=== PATIENT | female | born 1985 | race Caucasian/White ===

== ENCOUNTER 2017-12-22 17:31 | Emergency (ER) | payer BC ==
[~2017-12-22] VITALS: Ht 154.9 cm; Wt 44.1 kg
[~2017-12-22 17:31] MED LIST: EFF75 PO
[2017-12-22 17:49] VITALS: Ht 154.9 cm; Wt 44.1 kg
[2017-12-22] MEDS ORDERED: SODIUM CHLORIDE 0.9% 1000ML 1,000 ML IV STA (18:08)
--- NOTE | 2017-12-22 18:26 | EMERGENCY ROOM VISIT NOTE ---
History Report prepared by Clint: Devyn Thomas Under the Supervision of: Dr. Gilberto Sen M.D. First contact with patient: 17:59 Chief Complaint: FLU LIKE SX Stated Complaint: FLU History of Present Illness The patient is a 32 year old female who presents to the Emergency Room with complaints of flu-like symptoms that began five days ago. She has a history of a double mastectomy. At this time, the patient was evaluated at [facility] secondary to her lower back pain and RLQ shooting abdominal pain. She received blood work, a urinalysis, and was scheduled for a CT scan of her abdomen in the next coming days. Her blood and urine was found to be negative. However, two days ago she called the office because she was not feeling any better. She began to experience a cough, nausea, and global body aches. She was told that she may have the flu. She has progressed to experiencing some chest pain associated with deep inhalation. She was supposed to have her CT scan today , but did not go because she did not believe that she could drink the CT oral contrast. Pt denies LOC, headache, fevers, chills, diaphoresis, visual changes, neck pain, breathing difficulties, vomiting, abdominal pain, back pain, melena, hematochezia, urinary symptoms, numbness, weakness, lymphadenopathy, rash, or other complaints. She is currently taking Fluoxetine and Adderall. Source of History: patient Onset: five days ago Position: other (global) Symptom Intensity: moderate Quality: other (Flu-like symptoms) Timing: constant (for the flu symptoms), intermittent (for the abdominal pain) Associated Symptoms: + cough, + chest pain (associated with deep inhalation) , + nausea, + abdominal pain (RLQ and LLQ), + back pain (lower) Note: She is also experiencing generalized body aches. Review of Systems See HPI for pertinent positives and negatives. A total of ten systems were reviewed and were otherwise negative. Past Medical & Surgical Medical Problems: (1) Laceration of multiple sites of hand and fingers Surgical Problems: (1) S/P mastectomy, bilateral No chronic past medical history Family History Cancer Social History Smoking Status: Current Every Day Smoker Smokeless Tobacco Use: No Alcohol Use: none Drug Use: none Marital Status: Occupation Status: employed Current/Historical Medications Scheduled Fluoxetine HCl (Fluoxetine HCl), 20 MG PO DAILY Ibuprofen (Ibuprofen), 800 MG PO BID Oseltamivir Phosphate (Oseltamivir Phosphate), 75 MG PO DAILY Scheduled PRN Amphetamine-Dextroamphetamine 20MG (Adderall 20MG), 20 MG PO DAILY PRN for FOCUS Amphetamine-Dextroamphetamine 30MG (Adderall Xr 30MG), 30 MG PO DAILY PRN for FOCUS Clonazepam (Klonopin), 0.5 MG PO DAILY PRN for Anxiety Allergies Coded Allergies: Gabapentin (Verified Allergy, Mild, Depressed, 12/22/17) Physical Exam Vital Signs Date Time Temp Pulse Resp B/P (MAP) Pulse Ox O2 Delivery O2 Flow Rate FiO2 12/22/17 20:18 36.8 80 18 93/56 95 Room Air 12/22/17 17:49 37.0 85 18 106/74 94 Room Air Physical Exam GENERAL: Awake, alert, uncomfortable-appearing, in no distress HENT: Normocephalic, atraumatic. Oropharynx unremarkable. EYES: Normal conjunctiva. Sclera non-icteric. NECK: Supple. No nuchal rigidity. FROM. No JVD. RESPIRATORY: Mild cough noted, otherwise clear to auscultation. CARDIAC: Regular rate, normal rhythm. Extremities warm and well perfused. Pulses equal. ABDOMEN: Soft, non-distended. Minimal LLQ tenderness to palpation. No rebound or guarding. No masses. RECTAL: Deferred. MUSCULOSKELETAL: Chest examination reveals no tenderness. The back is symmetrical on inspection without obvious abnormality. There is no CVA tenderness to palpation. No joint edema. LOWER EXTREMITIES: Calves are equal size bilaterally and non-tender. No edema. No discoloration. NEURO: Normal sensorium. No sensory or motor deficits noted. SKIN: No rash or jaundice noted. Medical Decision & Procedures ER Provider Diagnostic Interpretation: Radiology results as stated below per my review and radiologist interpretation: CHEST ONE VIEW PORTABLE HISTORY: Generalized abdominal pain. COMPARISON: None. FINDINGS: The lungs are clear. Cardiac silhouette is normal in size. No pleural effusions. No pneumothorax. IMPRESSION: No acute process. Electronically signed by: Allen Maguire M.D. 12/22/2017 7:00 PM Dictated Date/Time: 12/22/2017 6:59 PM ABDOMEN AND PELVIS CT WITH IV CONTRAST CT DOSE: 260.66 mGy.cm HISTORY: Lower abdominal pain. TECHNIQUE: Multiaxial CT images of the abdomen and pelvis were performed following the use of intravenous contrast. A dose lowering technique was utilized adhering to the principles of ALARA. COMPARISON STUDY: None. FINDINGS: The lung bases are clear. No pneumoperitoneum. No pneumatosis. No fractures within the visualized osseous structures. Evidence for bilateral breast augmentation. The liver, gallbladder, pancreas, spleen, adrenal glands, and kidneys are unremarkable. No hydronephrosis. No retroperitoneal lymphadenopathy. The bladder is decompressed and not well visualized. The uterus and bilateral adnexa appear unremarkable. No dilated loops of bowel to suggest an obstruction. Multiple fluid-filled loops of small bowel are identified. There is moderate well-formed stool throughout the majority of the colon. Possible visualization of the appendix within the right lower quadrant on images 252 through 261. This is normal in caliber. No signs of inflammatory change to suggest acute appendicitis. IMPRESSION: 1. No definite bowel wall thickening or obstruction. 2. Fluid-filled nondistended small bowel. This could be within the range of normal limits or represent a mild gastroenteritis in the appropriate clinical setting. Electronically signed by: Allen Maguire M.D. 12/22/2017 8:29 PM Dictated Date/Time: 12/22/2017 8:19 PM Laboratory Results 12/22/17 18:40 Red Blood Count 4.35, Mean Corpuscular Volume 85.7, Mean Corpuscular Hemoglobin 29.2, Mean Corpuscular Hemoglobin Concent 34.0, Mean Platelet Volume 10.6, Neutrophils (%) (Auto) 45.0, Lymphocytes (%) (Auto) 43.8, Monocytes (%) (Auto) 8.8, Eosinophils (%) (Auto) 1.8, Basophils (%) (Auto) 0.3, Neutrophils # (Auto) 1.53, Lymphocytes # (Auto) 1.49, Monocytes # (Auto) 0.30, Eosinophils # (Auto) 0.06, Basophils # (Auto) 0.01 12/22/17 18:40 Test 12/22/17 18:40 12/22/17 19:46 White Blood Count 3.40 K/uL (4.8-10.8) Red Blood Count 4.35 M/uL (4.2-5.4) Hemoglobin 12.7 g/dL (12.0-16.0) Hematocrit 37.3 % (37-47) Mean Corpuscular Volume 85.7 fL (80-100) Mean Corpuscular Hemoglobin 29.2 pg (25-34) Mean Corpuscular Hemoglobin Concent 34.0 g/dl (32-36) Platelet Count 137 K/uL (130-400) Mean Platelet Volume 10.6 fL (7.4-10.4) Neutrophils (%) (Auto) 45.0 % Lymphocytes (%) (Auto) 43.8 % Monocytes (%) (Auto) 8.8 % Eosinophils (%) (Auto) 1.8 % Basophils (%) (Auto) 0.3 % Neutrophils # (Auto) 1.53 K/uL (1.4-6.5) Lymphocytes # (Auto) 1.49 K/uL (1.2-3.4) Monocytes # (Auto) 0.30 K/uL (0.11-0.59) Eosinophils # (Auto) 0.06 K/uL (0-0.5) Basophils # (Auto) 0.01 K/uL (0-0.2) RDW Standard Deviation 41.2 fL (36.4-46.3) RDW Coefficient of Variation 13.0 % (11.5-14.5) Immature Granulocyte % (Auto) 0.3 % Immature Granulocyte # (Auto) 0.01 K/uL (0.00-0.02) D-Dimer 480 ug/L FEU (0-500) Anion Gap 3.0 mmol/L (3-11) Est Creatinine Clear Calc Drug Dose 91.3 ml/min Estimated GFR () 138.1 Estimated GFR (Non- 119.1 BUN/Creatinine Ratio 15.5 (10-20) Calcium Level 8.0 mg/dl (8.5-10.1) Total Bilirubin 0.2 mg/dl (0.2-1) Direct Bilirubin < 0.1 mg/dl (0-0.2) Aspartate Amino Transf (AST/SGOT) 19 U/L (15-37) Alanine Aminotransferase (ALT/SGPT) 20 U/L (12-78) Alkaline Phosphatase 76 U/L (45-117) Troponin I < 0.015 ng/ml (0-0.045) Albumin 3.3 gm/dl (3.4-5.0) Lipase 380 U/L (73-393) Human Chorionic Gonadotropin, Qual NEG (NEG) Urine Color DK YELLOW Urine Appearance CLOUDY (CLEAR) Urine pH 5.5 (4.5-7.5) Urine Specific [place] 1.029 (1.000-1.030) Urine Protein NEG (NEG) Urine Glucose (UA) NEG (NEG) Urine Ketones TRACE (NEG) Urine Occult Blood TRACE (NEG) Urine Nitrite NEG (NEG) Urine Bilirubin NEG (NEG) Urine Urobilinogen NEG (NEG) Urine Leukocyte Esterase TRACE (NEG) Urine WBC (Auto) 10-30 /hpf (0-5) Urine RBC (Auto) 0-4 /hpf (0-4) Urine Hyaline Casts (Auto) 0 /lpf (0-5) Urine Epithelial Cells (Auto) >30 /lpf (0-5) Urine Bacteria (Auto) 1+ (NEG) Urine Renal Epithelial Cells /lpf (0-5) Urine Pathogenic Casts /lpf (0) Urine Mucus PRESENT (NONE PRSENT) Laboratory results reviewed by me Medications Administered Medications (Trade) Dose Ordered Sig/Lorie Route Start Time Stop Time Status Last Admin Dose Admin Sodium Chloride 1,000 ml @ 999 mls/hr Q1H1M STAT IV 12/22/17 18:08 12/22/17 19:08 DC 12/22/17 18:51 999 MLS/HR ECG Indication: chest pain Rate (beats per minute): 73 Rhythm: normal sinus Findings: no acute ischemic change, no ectopy, other (no pericarditis) Change: ECG interpreted by me ED Course 175: The patient was evaluated in room B3. A complete history and physical exam was performed. 1807: Ordered Sodium Chloride 1000 ml @ 999 mls/hr IV 1950: Upon reevaluation, the patient is doing well. 2047: CT imaging resulted. Discussed with the patient and family. Discussed conservative management. Ordered Phenergan home pack. Referred back to primary physician. Medical Decision Prior records/ancillary studies reviewed and summarized above. Nursing notes reviewed and agree them. The patient's history was concerning for flulike symptoms and abdominal pain Differential diagnosis: Etiologies such as influenza, viral syndrome, pneumonia, metabolic, infection, hypo/hyperglycemia, electrolyte abnormalities, UTI, appendicitis, colitis, , cardiac sources, intracerebral event, toxicologic, neurologic, as well as others were entertained. Physical examination: As above. ER treatment provided: IV Lock Normal saline hydration On reassessment the patient felt better. Diagnostics interpretation by me: ECG: Normal The labs revealed and unremarkable CBC and chemistry panel. D-dimer negative. Urinalysis equivocal however the patient has no symptoms. Urine culture pending. Imaging studies: Chest x-ray and CT scan as above. The patient has a viral syndrome-like presentation. She had a relatively benign abdomen and CT imaging questioned a mild gastroenteritis. She denied any vomiting. This seems like more of an ileus. She notes intermittent abdominal pain. She denied any urinary symptoms. Treating her at this point was not indicated. Chest and cardiac workup negative. She has had symptoms all week. An influenza-like syndrome is certainly possible but there is no indication for Tamiflu at this time. Conservative management was discussed. By the evaluation outlined above other emergent etiologies such as those listed in the differential, as well as others, were deemed relatively unlikely. The patient was educated about the findings as listed above. All questions were answered and the patient was pleased with the treatment. Return instructions were outlined and the patient was discharged in stable condition. The patient was referred to her PCPs office for follow-up for a recheck of the current condition. Medication Reconcilliation Current Medication List: was personally reviewed by me Blood Pressure Screening Patient's blood pressure: Normal blood pressure Blood pressure disposition: Did not require urgent referral Impression Primary Impression: Influenza-like symptoms Scribe Attestation The scribe's documentation has been prepared under my direction and personally reviewed by me in its entirety. I confirm that the note above accurately reflects all work, treatment, procedures, and medical decision making performed by me. Departure Information Referrals Muriel Robles M.D. (PCP) Patient Instructions My [facility]
[2017-12-22] MEDS ORDERED: AMPH20TA2 PO (18:52)
[2017-12-22] MEDS ORDERED: AMPH30CA3 PO (18:52)
[2017-12-22] MEDS ORDERED: FLUO20CA36 PO (18:52)
[2017-12-22] MEDS ORDERED: OSEL75CA16 PO (18:52)
[2017-12-22] MEDS ORDERED: MTR800 PO (18:52)
[2017-12-22] MEDS ORDERED: CLON0.5T3 PO (18:52)
[2017-12-22 18:53] LABS: BASO % 0.3 %; BASO ABS # 0.01 K/uL (0-0.2); EOS % 1.8 %; EOS ABS # 0.06 K/uL (0-0.5); HEMATOCRIT 37.3 % (37-47); HEMOGLOBIN 12.7 g/dL (12.0-16.0); IG# 0.01 K/uL (0.00-0.02); LYMPH % 43.8 %; LYMPH ABS # 1.49 K/uL (1.2-3.4); MEAN CELL VOLUME 85.7 fL (80-100); MEAN CORPUSCULAR HEMOGLOBIN 29.2 pg (25-34); MEAN PLATELET VOLUME 10.6 fL (7.4-10.4); MONO % 8.8 %; NEUT ABS # 1.53 K/uL (1.4-6.5); PLATELET COUNT 137 K/uL (130-400); RED CELL DISTRIBUTION WIDTH SD 41.2 fL (36.4-46.3)
--- NOTE | 2017-12-22 19:01 | DIAGNOSTIC IMAGING REPORT ---
CHEST ONE VIEW PORTABLE HISTORY: Generalized abdominal pain. COMPARISON: None. FINDINGS: The lungs are clear. Cardiac silhouette is normal in size. No pleural effusions. No pneumothorax. IMPRESSION: No acute process. Electronically signed by: Allen Maguire M.D. 12/22/2017 7:00 PM Dictated Date/Time: 12/22/2017 6:59 PM
[2017-12-22 19:33] LABS: AST/SGOT 19 U/L (15-37)
[2017-12-22 19:37] LABS: ALBUMIN 3.3 gm/dl (3.4-5.0); ALT/SGPT 20 U/L (12-78); CARBON DIOXIDE 34 mmol/L (21-32); CREATININE 0.61 mg/dl (0.60-1.20); GLUCOSE 93 mg/dl (70-99); TOTAL PROTEIN 7.3 gm/dl (6.4-8.2)
[2017-12-22 19:38] LABS: ALKALINE PHOSPHATASE 76 U/L (45-117); BLOOD UREA NITROGEN 9 mg/dl (7-18); LIPASE 380 U/L (73-393); POTASSIUM 3.3 mmol/L (3.5-5.1); SODIUM 138 mmol/L (136-145)
[2017-12-22] MEDS ORDERED: OPTIRAY 320 IV PRN (19:45)
--- NOTE | 2017-12-22 20:30 | DIAGNOSTIC IMAGING REPORT ---
ABDOMEN AND PELVIS CT WITH IV CONTRAST CT DOSE: 260.66 mGy.cm HISTORY: Lower abdominal pain. TECHNIQUE: Multiaxial CT images of the abdomen and pelvis were performed following the use of intravenous contrast. A dose lowering technique was utilized adhering to the principles of ALARA. COMPARISON STUDY: None. FINDINGS: The lung bases are clear. No pneumoperitoneum. No pneumatosis. No fractures within the visualized osseous structures. Evidence for bilateral breast augmentation. The liver, gallbladder, pancreas, spleen, adrenal glands, and kidneys are unremarkable. No hydronephrosis. No retroperitoneal lymphadenopathy. The bladder is decompressed and not well visualized. The uterus and bilateral adnexa appear unremarkable. No dilated loops of bowel to suggest an obstruction. Multiple fluid-filled loops of small bowel are identified. There is moderate well-formed stool throughout the majority of the colon. Possible visualization of the appendix within the right lower quadrant on images 252 through 261. This is normal in caliber. No signs of inflammatory change to suggest acute appendicitis. IMPRESSION: 1. No definite bowel wall thickening or obstruction. 2. Fluid-filled nondistended small bowel. This could be within the range of normal limits or represent a mild gastroenteritis in the appropriate clinical setting. Electronically signed by: Allen Maguire M.D. 12/22/2017 8:29 PM Dictated Date/Time: 12/22/2017 8:19 PM
[2017-12-22] MEDS ORDERED: PHENERGAN 25MG HOMEPACK PO ONE (21:00)
[2017-12-22 21:47] VITALS: BP 95/55; PULSE 81; TEMP 36.7; O2SAT 95
== END 2017-12-22 21:48 | disposition home or self-care (01) ==
LOC: C.EDB 17:32
DX: R05 Cough (principal); R11.0 Nausea; R07.1 Chest pain on breathing; M54.5 Low back pain; R10.31 Right lower quadrant pain; R10.32 Left lower quadrant pain; F17.200 Nicotine dependence, unspecified, uncomplicated; Z90.13 Acquired absence of bilateral breasts and nipples; Z80.9 Family history of malignant neoplasm, unspecified

== ENCOUNTER 2017-12-28 16:35 | Observation (INO) | payer BC ==
[~2017-12-28] VITALS: Ht 154.9 cm; Wt 45.0 kg
[~2017-12-28 16:35] MED LIST changes: +AMPH20TA2 PO; +AMPH30CA3 PO; +CLON0.5T3 PO; -EFF75 PO; +FLUO20CA36 PO; +MTR800 PO; +OSEL75CA16 PO
[2017-12-28] MEDS ORDERED: OPTIRAY 320 IV PRN (17:15)
[2017-12-28] MEDS ORDERED: MoRPHine SULFATE 4 MG/ML 1 ML CARP\\VIAL IV STA (17:17)
[2017-12-28] MEDS ORDERED: ONDANSETRON INJ 2 MG/ML 2 ML VIAL IV STA (17:17)
[2017-12-28 17:24] LABS: BASO % 0.3 %; BASO ABS # 0.03 K/uL (0-0.2); EOS % 0.7 %; EOS ABS # 0.08 K/uL (0-0.5); HEMATOCRIT 38.3 % (37-47); HEMOGLOBIN 13.1 g/dL (12.0-16.0); IG# 0.04 K/uL (0.00-0.02); LYMPH % 16.4 %; LYMPH ABS # 1.81 K/uL (1.2-3.4); MEAN CELL VOLUME 85.9 fL (80-100); MEAN CORPUSCULAR HEMOGLOBIN 29.4 pg (25-34); MEAN CORPUSCULAR HGB CONC 34.2 g/dl (32-36); MEAN PLATELET VOLUME 9.5 fL (7.4-10.4); MONO % 9.7 %; MONO ABS # 1.07 K/uL (0.11-0.59); NEUT % 72.5 %; NEUT ABS # 8.04 K/uL (1.4-6.5); PLATELET COUNT 519 K/uL (130-400); RED CELL DISTRIBUTION WIDTH SD 41.4 fL (36.4-46.3); WHITE BLOOD COUNT 11.07 K/uL (4.8-10.8)
[2017-12-28 17:29] LABS: ISTAT CREATININE 0.4 mg/dl (0.6-1.3); ISTAT IONIZED CALCIUM 1.14 mmol/l (1.12-1.32); ISTAT POTASSIUM 3.1 mEq/L (3.3-5.0)
[2017-12-28 17:33] LABS: PTT PATIENT 30.3 SECONDS (21.0-31.0)
[2017-12-28] MEDS ORDERED: HYDROmorphone INJ 0.5 MG/0.5 ML SYR ONE (17:37)
[2017-12-28 17:43] LABS: BLOOD UREA NITROGEN 9 mg/dl (7-18); CALCIUM 8.9 mg/dl (8.5-10.1); CARBON DIOXIDE 31 mmol/L (21-32); CREATININE 0.45 mg/dl (0.60-1.20); GLUCOSE 81 mg/dl (70-99); POTASSIUM 3.1 mmol/L (3.5-5.1); SODIUM 137 mmol/L (136-145)
--- NOTE | 2017-12-28 18:12 | DIAGNOSTIC IMAGING REPORT ---
(CHEST FOR PE) ANGIO WITH CLINICAL HISTORY: 32 years-old Female presenting with ^left lower chest pain, eval for PE. TECHNIQUE: Multidetector CT angiography of the chest was performed after administration of intravenous contrast. 3-D volumetric and/or maximum intensity projection (MIP) images were subsequently reconstructed for review. IV contrast: 81 mL of Optiray 320. A dose lowering technique was used consistent with the principles of ALARA (as low as reasonably achievable). COMPARISON: Chest x-ray from 12/22/2017. CT DOSE (mGy.cm): The estimated cumulative dose is 174.60 mGy.cm. FINDINGS: Music Journalist topogram: Unremarkable. Pulmonary vasculature: The study is adequate for assessment of the pulmonary vascular tree. No filling defect within the pulmonary arteries to suggest embolus. Main pulmonary artery is not enlarged. No flattening of the interventricular septum. No intracardiac filling defect. No reflux of contrast into the hepatic veins. Remaining chest: On soft tissue windows, bilateral subpectoral breast implants noted. Normal thyroid. No axillary, supraclavicular, hilar, or mediastinal lymphadenopathy. Four-vessel aortic arch. Normal heart size. No pericardial or pleural effusion. Upper abdomen normal. On lung windows, patchy consolidation in the posterior basal right lower lobe. More extensive consolidation in the anterior basal and lateral basal left lower lobe. Apical predominant emphysematous changes. Evidence of subsegmental bronchial occlusion in the posterior basal right lower lobe and anterolateral left lower lobe. Trachea patent. On bone windows, normal osseous structures. IMPRESSION: 1. No evidence of pulmonary embolus. 2. Extensive consolidation in the right lower and left lower lobes compatible with multifocal pneumonia. Evidence of bronchial debris/mucus plugging in the subsegmental airways to the involved segments. 3. Emphysema. Electronically signed by: Kaiden Aquino M.D. 12/28/2017 6:11 PM Dictated Date/Time: 12/28/2017 6:07 PM
[2017-12-28] MEDS ORDERED: LEVAQUIN 750MG / 150ML D5W IV STA (18:28)
[2017-12-28] MEDS ORDERED: POTASSIUM CHLORIDE 10 MEQ TABCR PO STA (18:56)
[2017-12-28] MEDS ORDERED: ONDANSETRON INJ 2 MG/ML 2 ML VIAL IV PRN (19:15)
[2017-12-28] MEDS ORDERED: IV FLUIDS COMPLETED PRN (19:30)
--- NOTE | 2017-12-28 20:28 | History and Physical ---
History & Physical Date & Time of Service: Dec 28, 2017 ~ 18:45 Chief Complaint: Left Rib Pain Primary Care Physician: Muriel Robles M.D. History of Present Illness 32 year old female who presents to the ED with left sided rib pain. Patient reports her illness started about two weeks ago with low back pain. She reports she chronically has low back pain however it acutely worsened two weeks ago. She was seen by her PCP and labs and xrays were obtained that were unremarkable. About a week ago patient developed chills, body aches, nausea, and weakness. Tamiflu was called in for her on 12/20 and she completed the course. She was seen in the ED on 12/22 for similar complaints and had an unremarkable work up. Patient reports that since that time she has developed a cough productive for yellow and green sputum. Denies shortness of breath. She continues to have body aches and runs a low grade fever. She has developed left sided rib pain that has progressed to severe pain. She has had a poor appetite but denies nausea, vomiting, diarrhea, or abdominal pain. No urinary symptoms. In the ED, patient underwent a CTA of the chest that is negative for PE but does show a multifocal pneumonia. She is saturating well on room air. Other vitals are stable. She was given IV Levaquin, IV Dilaudid, IV Morphine, IV Zofran, and K+ supplement. Past Medical/Surgical History Medical Problems: (1) ADHD Status: Chronic (2) Bipolar 1 disorder Status: Chronic Surgical Problems: (1) S/P mastectomy, bilateral Status: Chronic Family History FH: breast cancer MOTHER GRANDMOTHER Social History Smoking Status: Current Every Day Smoker Alcohol Use: occasionally Drug Use: none Immunizations History of Tetanus Vaccine?: Yes Tetanus Immunization Date: Aug 15, 2014 Multi-Drug Resistant Organisms History of MDRO: No Allergies Coded Allergies: Gabapentin (Verified Allergy, Mild, Depressed, 12/28/17) Home Medications Scheduled Amphetamine-Dextroamphetamine 20MG (Adderall 20MG), 20 MG PO HS Amphetamine-Dextroamphetamine 30MG (Adderall Xr 30MG), 60 MG PO DAILY Fluoxetine HCl (Fluoxetine HCl), 60 MG PO DAILY Review of Systems ROS per HPI, all other systems reviewed and negative Physical Exam Vital Signs Date Time Temp Pulse Resp B/P (MAP) Pulse Ox O2 Delivery O2 Flow Rate FiO2 12/28/17 19:35 87 20 92/53 95 Room Air 12/28/17 18:33 93 12/28/17 18:21 101 20 121/63 99 Room Air 12/28/17 16:42 36.5 111 24 127/85 95 Room Air General Appearance: WD/WN, no apparent distress Head: normocephalic, atraumatic Eyes: normal inspection, EOMI, sclerae normal ENT: hearing grossly normal, + pertinent finding (mucous membranes moist) Neck: supple, no JVD, trachea midline Respiratory/Chest: no respiratory distress, + decreased breath sounds (poor inspiratory effort) Cardiovascular: regular rate, rhythm, no edema, normal peripheral pulses Abdomen/GI: normal bowel sounds, non tender, soft, no organomegaly Extremities/Musculoskelatal: normal inspection, no calf tenderness, normal capillary refill Neurologic/Psych: no motor/sensory deficits, alert, normal mood/affect, oriented x 3 Skin: normal color, warm/dry Diagnostics Laboratory Results Results Past 24 Hours Test 12/28/17 17:00 12/28/17 17:10 12/28/17 17:14 12/28/17 17:16 Range/Units White Blood Count 11.07 4.8-10.8 K/uL Red Blood Count 4.46 4.2-5.4 M/uL Hemoglobin 13.1 12.0-16.0 g/dL Hematocrit 38.3 37-47 % Mean Corpuscular Volume 85.9 80-100 fL Mean Corpuscular Hemoglobin 29.4 25-34 pg Mean Corpuscular Hemoglobin Concent 34.2 32-36 g/dl Platelet Count 519 130-400 K/uL Mean Platelet Volume 9.5 7.4-10.4 fL Neutrophils (%) (Auto) 72.5 % Lymphocytes (%) (Auto) 16.4 % Monocytes (%) (Auto) 9.7 % Eosinophils (%) (Auto) 0.7 % Basophils (%) (Auto) 0.3 % Neutrophils # (Auto) 8.04 1.4-6.5 K/uL Lymphocytes # (Auto) 1.81 1.2-3.4 K/uL Monocytes # (Auto) 1.07 0.11-0.59 K/uL Eosinophils # (Auto) 0.08 0-0.5 K/uL Basophils # (Auto) 0.03 0-0.2 K/uL RDW Standard Deviation 41.4 36.4-46.3 fL RDW Coefficient of Variation 13.0 11.5-14.5 % Immature Granulocyte % (Auto) 0.4 % Immature Granulocyte # (Auto) 0.04 0.00-0.02 K/uL Prothrombin Time 10.0 9.0-12.0 SECONDS Prothromb Time International Ratio 1.0 0.9-1.1 Activated Partial Thromboplast Time 30.3 21.0-31.0 SECONDS Partial Thromboplastin Ratio 1.2 Sodium Level 137 136-145 mmol/L Potassium Level 3.1 3.5-5.1 mmol/L Chloride Level 100 98-107 mmol/L Carbon Dioxide Level 31 21-32 mmol/L Anion Gap 6.0 16.0 16-25 mmol/L Blood Urea Nitrogen 9 7-18 mg/dl Creatinine 0.45 0.60-1.20 mg/dl Est Creatinine Clear Calc Drug Dose 126.3 ml/min Estimated GFR () > 150.0 Estimated GFR (Non- 131.7 BUN/Creatinine Ratio 20.2 10-20 Random Glucose 81 70-99 mg/dl Calcium Level 8.9 8.5-10.1 mg/dl Magnesium Level 2.3 1.8-2.4 mg/dl Bedside Hemoglobin 13.3 12.0-16.0 g/dl Bedside Hematocrit 39 37-47 % Bedside Sodium 138 135-144 mEq/L Bedside Potassium 3.1 3.3-5.0 mEq/L Bedside Chloride 96 101-112 mEq/L Bedside Total CO2 30 24-31 mEq/l Bedside Blood Urea Nitrogen 7 7-18 mg/dl Bedside Creatinine 0.4 0.6-1.3 mg/dl Bedside Glucose (other) 85 70-99 mg/dl Bedside Ionized Calcium (Angella) 1.14 1.12-1.32 mmol/l Bedside Troponin I < 0.030 0-0.045 ng/ml Microbiology Results 12/28/17 Blood Culture, Received Pending 12/28/17 Blood Culture, Received Pending Diagnostic Radiology CTA CHEST IMPRESSION: 1. No evidence of pulmonary embolus. 2. Extensive consolidation in the right lower and left lower lobes compatible with multifocal pneumonia. Evidence of bronchial debris/mucus plugging in the subsegmental airways to the involved segments. 3. Emphysema. Impression Assessment and Plan MULTIFOCAL PNEUMONIA - admit to med/surg - patient presenting with cough and left sided rib pain; in the ED, CTA chest shows a multifocal pneumonia - was treated for suspected influenza with Tamiflu on 12/20 and completed the course - no role for testing for influenza at this point given duration of symptoms; prophylactic droplet precautions - saturating well on room air - s/p Levaquin in the ED, will continue with - sputum cultures - does not appear septic - neb, flutter valve to help mobilize secretions HYPOKALEMIA - likely due to poor PO intake - replace K+, follow levels - Mg+ WNL ADHD, BIPOLAR - continue fluoxetine and Adderall DVT PROPHYLAXIS - SCDs, ambulation DISPO - The patient will be placed as observation status for now until further work up is complete. ADDENDUM: This is a 32 year old with a two week history of feeling ill. Has been feeling sick; and finished a course of Tamiflu. presented here due to worsening weakness, shortness of breath, congestion. CTA here suggested multifocal pneumonia Plan: Levaquin for pneumonia Toradol PRN for pain gentle IV hydration possible d/c home in AM (12/29) VTE Prophylaxis VTE Risk Assessment Done? Y/N: Yes Risk Level: Moderate
[2017-12-28 20:56] VITALS: O2SAT 95; Ht 154.9 cm; Wt 45.0 kg
[2017-12-28] MEDS: SODIUM CHLORIDE 0.9% 1000ML 1,000 ML IV SCH (21:01)
[2017-12-28 21:20] VITALS: PULSE 87; O2SAT 92
[2017-12-28] MEDS: ALBUT/IPRATROP 3MG/0.5MG NEB 3 ML VIAL INH SCH (21:20)
[2017-12-28] MEDS: AMPHETAMINE ASP/SULF/DEXTRAMPH 20 MG TAB PO SCH (21:43)
[2017-12-28] MEDS ORDERED: POTASSIUM CHLORIDE 20 MEQ TABCR PO SCH (22:00)
--- NOTE | 2017-12-28 23:08 | EMERGENCY ROOM VISIT NOTE ---
History Report prepared by Clint: Kristal Bunn Under the Supervision of: Dr. Mann Verdugo M.D. First contact with patient: 16:50 Chief Complaint: RIB PAIN Stated Complaint: PAIN IN RIB CAGE History of Present Illness The patient is a 32 year old female who presents to the Emergency Room with complaints of worsening sharp left sided rib pain beginning about an hour ago. The patient reports she has had left rib cramping pain starting a week ago. She reports her pain acutely worsened over the past hour. She notes shortness of breath with her rib pain. She states her pain worsens with movement. The patient was recently sick with flu like symptoms. She states her flu like symptoms mostly consisted of body aches. The patient recently finished a course of Tamiflu but she was never was tested for the flu. She denies any urinary symptoms. The patient reports a productive cough with green mucus and a subjective fever beginning two days ago. She denies any recent trauma or injuries. She denies any personal or family history of blood clots. The patient states she has not had intercourse in two weeks. She states she recently had her menstrual cycle which was normal. Source of History: patient Onset: an hour ago Position: other (left rib) Quality: sharp Timing: worsening Modifying Factors (Worsening): movement Associated Symptoms: + fevers, + cough, + SOB, No urinary symptoms Review of Systems See HPI for pertinent positives & negatives. A total of 10 systems reviewed and were otherwise negative. Past Medical & Surgical Medical Problems: (1) ADHD (2) Bipolar 1 disorder Surgical Problems: (1) S/P mastectomy, bilateral Family History Cancer Social History Smoking Status: Current Every Day Smoker Alcohol Use: none Drug Use: none Marital Status: Occupation Status: employed Current/Historical Medications Scheduled Amphetamine-Dextroamphetamine 20MG (Adderall 20MG), 20 MG PO HS Amphetamine-Dextroamphetamine 30MG (Adderall Xr 30MG), 60 MG PO DAILY Fluoxetine HCl (Fluoxetine HCl), 60 MG PO DAILY Allergies Coded Allergies: Gabapentin (Verified Allergy, Mild, Depressed, 12/28/17) Physical Exam Vital Signs Date Time Temp Pulse Resp B/P (MAP) Pulse Ox O2 Delivery O2 Flow Rate FiO2 12/28/17 18:33 93 12/28/17 18:21 101 20 121/63 99 Room Air 12/28/17 16:42 36.5 111 24 127/85 95 Room Air Physical Exam Constitutional: Vital signs reviewed. Crying and writhing in pain. Eyes: Pupils are equal round reactive to light. Conjunctiva are noninjected. ENT: Pharynx is clear without erythema or exudate. Mucous membranes are moist. Neck supple without meningeal signs. Respiratory: Clear to auscultation bilaterally. Breath sounds are equal bilaterally. Cardiovascular: Regular rate and rhythm. No rubs or gallops. GI: Soft, nondistended and nontender. Bowel sounds are present. Musculoskeletal:Left lower anterior rib tenderness. No CVA tenderness. No peripheral edema. No lower extremity tenderness. Integumentary: No cyanosis. Neurological: The patient is awake and alert. No focal deficits. Psychiatric: Anxious and tearful. Medical Decision & Procedures ER Provider Diagnostic Interpretation: Radiology results as stated below per my review and the radiologist's interpretation: (CHEST FOR PE) ANGIO WITH FINDINGS: Risk Consultant topogram: Unremarkable. Pulmonary vasculature: The study is adequate for assessment of the pulmonary vascular tree. No filling defect within the pulmonary arteries to suggest embolus. Main pulmonary artery is not enlarged. No flattening of the interventricular septum. No intracardiac filling defect. No reflux of contrast into the hepatic veins. Remaining chest: On soft tissue windows, bilateral subpectoral breast implants noted. Normal thyroid. No axillary, supraclavicular, hilar, or mediastinal lymphadenopathy. Four-vessel aortic arch. Normal heart size. No pericardial or pleural effusion. Upper abdomen normal. On lung windows, patchy consolidation in the posterior basal right lower lobe. More extensive consolidation in the anterior basal and lateral basal left lower lobe. Apical predominant emphysematous changes. Evidence of subsegmental bronchial occlusion in the posterior basal right lower lobe and anterolateral left lower lobe. Trachea patent. On bone windows, normal osseous structures. IMPRESSION: 1. No evidence of pulmonary embolus. 2. Extensive consolidation in the right lower and left lower lobes compatible with multifocal pneumonia. Evidence of bronchial debris/mucus plugging in the subsegmental airways to the involved segments. 3. Emphysema. Electronically signed by: Kaiden Aquino M.D. Laboratory Results 12/28/17 17:10 Red Blood Count 4.46, Mean Corpuscular Volume 85.9, Mean Corpuscular Hemoglobin 29.4, Mean Corpuscular Hemoglobin Concent 34.2, Mean Platelet Volume 9.5, Neutrophils (%) (Auto) 72.5, Lymphocytes (%) (Auto) 16.4, Monocytes (%) (Auto) 9.7, Eosinophils (%) (Auto) 0.7, Basophils (%) (Auto) 0.3, Neutrophils # (Auto) 8.04, Lymphocytes # (Auto) 1.81, Monocytes # (Auto) 1.07, Eosinophils # (Auto) 0.08, Basophils # (Auto) 0.03 12/28/17 17:10 Test 12/28/17 17:00 12/28/17 17:10 12/28/17 17:14 12/28/17 17:16 White Blood Count 11.07 K/uL (4.8-10.8) Red Blood Count 4.46 M/uL (4.2-5.4) Hemoglobin 13.1 g/dL (12.0-16.0) Hematocrit 38.3 % (37-47) Mean Corpuscular Volume 85.9 fL (80-100) Mean Corpuscular Hemoglobin 29.4 pg (25-34) Mean Corpuscular Hemoglobin Concent 34.2 g/dl (32-36) Platelet Count 519 K/uL (130-400) Mean Platelet Volume 9.5 fL (7.4-10.4) Neutrophils (%) (Auto) 72.5 % Lymphocytes (%) (Auto) 16.4 % Monocytes (%) (Auto) 9.7 % Eosinophils (%) (Auto) 0.7 % Basophils (%) (Auto) 0.3 % Neutrophils # (Auto) 8.04 K/uL (1.4-6.5) Lymphocytes # (Auto) 1.81 K/uL (1.2-3.4) Monocytes # (Auto) 1.07 K/uL (0.11-0.59) Eosinophils # (Auto) 0.08 K/uL (0-0.5) Basophils # (Auto) 0.03 K/uL (0-0.2) RDW Standard Deviation 41.4 fL (36.4-46.3) RDW Coefficient of Variation 13.0 % (11.5-14.5) Immature Granulocyte % (Auto) 0.4 % Immature Granulocyte # (Auto) 0.04 K/uL (0.00-0.02) Prothrombin Time 10.0 SECONDS (9.0-12.0) Prothromb Time International Ratio 1.0 (0.9-1.1) Activated Partial Thromboplast Time 30.3 SECONDS (21.0-31.0) Partial Thromboplastin Ratio 1.2 Est Creatinine Clear Calc Drug Dose 126.3 ml/min Estimated GFR () > 150.0 Estimated GFR (Non- 131.7 BUN/Creatinine Ratio 20.2 (10-20) Calcium Level 8.9 mg/dl (8.5-10.1) Magnesium Level 2.3 mg/dl (1.8-2.4) Bedside Hemoglobin 13.3 g/dl (12.0-16.0) Bedside Hematocrit 39 % (37-47) Bedside Sodium 138 mEq/L (135-144) Bedside Potassium 3.1 mEq/L (3.3-5.0) Bedside Chloride 96 mEq/L (101-112) Bedside Total CO2 30 mEq/l (24-31) Anion Gap 16.0 mmol/L (16-25) Bedside Blood Urea Nitrogen 7 mg/dl (7-18) Bedside Creatinine 0.4 mg/dl (0.6-1.3) Bedside Glucose (other) 85 mg/dl (70-99) Bedside Ionized Calcium (Angella) 1.14 mmol/l (1.12-1.32) Bedside Troponin I < 0.030 ng/ml (0-0.045) Laboratory results as reviewed by me. Medications Administered Medications (Trade) Dose Ordered Sig/[facility] Route Start Time Stop Time Status Last Admin Dose Admin Morphine Sulfate (MoRPHine SULFATE INJ) 4 mg NOW STAT IV 12/28/17 17:17 12/28/17 17:18 DC 12/28/17 17:29 4 MG Ondansetron HCl (Zofran Inj) 4 mg NOW STAT IV 12/28/17 17:17 12/28/17 17:18 DC 12/28/17 17:28 4 MG Hydromorphone HCl (Dilaudid Inj) 0.5 mg STK-MED ONCE .ROUTE 12/28/17 17:37 12/28/17 17:38 DC 12/28/17 17:39 0.5 MG Levofloxacin (Levaquin / D5W) 750 mg NOW STAT IV 12/28/17 18:28 12/28/17 18:29 DC 12/28/17 19:33 750 MG Potassium Chloride (Klor-Con M10) 40 meq NOW STAT PO 12/28/17 18:56 12/28/17 18:57 DC 12/28/17 19:34 40 MEQ ED Course 165: The patient was evaluated in room C12B. A complete history and physical exam was performed. 1717: Ordered Zofran Inj 4 mg IV, Morphine Sulfate 4 mg IV. 173: Ordered Dilaudid Inj 0.5 mg .ROUTE. 182: Ordered Levofloxacin 750 mg IV. 183: I updated the patient on her test results. 183: I spoke with Mini Quezada. We discussed the patient and her results. The patient will be further evaluated by her. 185: Ordered Potassium Chloride 40 meq PO. Medical Decision This is a 32-year-old female presents with chest pain. Differential diagnosis includes pulmonary embolism, pulmonary infarct, pneumonia, pneumothorax, pleurisy, pericarditis. I did perform a limited focused review of portions of the patient's old chart on the electronic medical record. The patient was seen in the ED on December 22. She had negative chest X-ray, a CT which showed possible mild gastroenteritis of abdomen pelvis, and she was diagnosed with influenza-like symptoms. I did evaluate the patient as noted above. IV access was established. The patient was placed on a continuous quality assurance monitor. I did order and personally review the patient's 12-lead EKG as described above. I did order and review the patient's blood work as noted in the electronic medical record. Her white count is slightly elevated. Her potassium is 2.1. She was given oral supplementation. She was treated with IV morphine and Zofran for her chest pain. Because of the patient's sudden onset of chest pain and shortness of breath I did order a CT of the chest to rule out pulmonary embolism. I did review the images myself as well as the radiology report as described above. There is no evidence of pulmonary embolism. She does have consolidation/ pneumonia. Blood cultures were ordered. She was treated with Levaquin IV. She had continued pain and was given Dilaudid 0.5 mg IV. I did discuss the test results with the patient. I did discuss case with the hospitalist and caseworker. Medication Reconcilliation Current Medication List: was personally reviewed by me Blood Pressure Screening Patient's blood pressure: Elevated blood pressure Blood pressure disposition: Elevated BP felt to be situational Consults Time Called: 1828 Consulting Physician: Mini Quezada Returned Call: 1832 I spoke with Mini Quezada. We discussed the patient and her results. The patient will be further evaluated by her. Impression Primary Impression: Multifocal pneumonia Additional Impressions: Mucus plugging of bronchi Hypokalemia Scribe Attestation The scribe's documentation has been prepared under my direct and personally reviewed by me in its entirety. I confirm that the note above accurately reflects all work, treatment, procedures, and medical decision making performed by me. Departure Information Dispostion Being Evaluated By Hospitalist Referrals No Doctor, Assigned (PCP) Patient Instructions [facility] Problem Qualifiers
[2017-12-28 23:38] VITALS: BP 85/51; PULSE 82; TEMP 36.7; O2SAT 96
[2017-12-29] VITALS (9 sets, daily range): BP systolic 87–102; BP diastolic 51–66; PULSE 68–98; TEMP 36.8–36.9; O2SAT 91–97
[2017-12-29] MEDS: KETOROLAC TROMETHAMINE 15 MG/ML VIAL IV. PRN ×2 (06:20→14:23)
[2017-12-29] MEDS: ALBUT/IPRATROP 3MG/0.5MG NEB 3 ML VIAL INH SCH ×4 (07:30→18:53)
[2017-12-29 08:44] LABS: HEMOGLOBIN 11.3 g/dL (12.0-16.0); MEAN CELL VOLUME 86.5 fL (80-100); MEAN CORPUSCULAR HEMOGLOBIN 28.8 pg (25-34); MEAN CORPUSCULAR HGB CONC 33.2 g/dl (32-36); MEAN PLATELET VOLUME 9.5 fL (7.4-10.4); PLATELET COUNT 412 K/uL (130-400); RED CELL DISTRIBUTION WIDTH CV 12.9 % (11.5-14.5); RED CELL DISTRIBUTION WIDTH SD 41.8 fL (36.4-46.3); WHITE BLOOD COUNT 7.13 K/uL (4.8-10.8)
[2017-12-29 09:20] LABS: BLOOD UREA NITROGEN 5 mg/dl (7-18); CALCIUM 8.2 mg/dl (8.5-10.1); CARBON DIOXIDE 28 mmol/L (21-32); GLUCOSE 69 mg/dl (70-99); POTASSIUM 3.8 mmol/L (3.5-5.1); SODIUM 135 mmol/L (136-145)
[2017-12-29] MEDS: SODIUM CHLORIDE 0.9% 1000ML 1,000 ML IV SCH (10:19)
[2017-12-29] MEDS: FLUOXETINE HCL 20 MG CAP PO SCH (10:20)
[2017-12-29] MEDS: AMPHETAMINE ASP/SULF/DEXTRAMPH ER 20 MG CAP PO SCH (10:20)
--- NOTE | 2017-12-29 14:10 | Progress Note ---
Internal Med Progress Note Date of Service: Dec 29, 2017. Provider Documentation: SUBJECTIVE: Seen and examined at bedside Feels anxious States having pleuritic chest pain Denies SOB, wheezing No other complaints Family at bedside OBJECTIVE: Vital Signs-as noted below Physical Exam: General Appearance:Thin, no apparent distress Head: normocephalic, Atraumatic Eyes: normal inspection, EOMI, PERRL Neck: supple, Trachea midline Respiratory/Chest: Decreased breath sounds Cardiovascular: S1, S2, No murmur Abdomen/GI:Soft, Non tender, Bowel sounds present Extremities/Musculoskelatal:normal inspection, no edema Neurologic/Psych:AAOX3, grossly no focal neurological deficits Skin: normal color, warm Lab data as noted below. ASSESSMENT & PLAN: Multifocal Pneumonia: CT: No PE, extensive consolidation in right lower and left lower lobes with evidence of possible mucus plugging in subsegmental airways to the involved segments. Emphysema Recently completed Tamiflu course for suspected Influenza Continue Levaquin Blood cultures:pending Neb PRN Pulmonary toilet with flutter valve BP usually runs low per patient Hypokalemia: Resolved monitor ADHD, Bipolar disorder continue fluoxetine and Adderall Tobacco Use Disorder: Nicotine patch Counselled to quit smoking DVT Px: SCDs, ambulation Disposition: Expect to discharge home when stable Vital Signs: Date Time Temp Pulse Resp B/P (MAP) Pulse Ox O2 Delivery O2 Flow Rate FiO2 12/29/17 11:33 79 16 93 Room Air 12/29/17 09:00 94 Room Air 12/29/17 07:51 36.9 68 20 87/51 (63) 94 Room Air 98/63 (75) 12/29/17 07:30 68 16 94 Room Air 12/29/17 00:00 92 Room Air 12/28/17 23:38 36.7 82 20 85/51 (62) 96 Room Air 12/28/17 21:20 87 14 92 Room Air 12/28/17 20:56 95 Room Air 12/28/17 20:38 84 19 92/53 95 12/28/17 19:35 87 20 92/53 95 Room Air 12/28/17 18:33 93 12/28/17 18:21 101 20 121/63 99 Room Air 12/28/17 16:42 36.5 111 24 127/85 95 Room Air Lab Results: Results Past 24 Hours Test 12/28/17 17:00 12/28/17 17:10 12/28/17 17:14 12/28/17 17:16 Range/Units Bedside Urine Test NEG NEG White Blood Count 11.07 4.8-10.8 K/uL Red Blood Count 4.46 4.2-5.4 M/uL Hemoglobin 13.1 12.0-16.0 g/dL Hematocrit 38.3 37-47 % Mean Corpuscular Volume 85.9 80-100 fL Mean Corpuscular Hemoglobin 29.4 25-34 pg Mean Corpuscular Hemoglobin Concent 34.2 32-36 g/dl Platelet Count 519 130-400 K/uL Mean Platelet Volume 9.5 7.4-10.4 fL Neutrophils (%) (Auto) 72.5 % Lymphocytes (%) (Auto) 16.4 % Monocytes (%) (Auto) 9.7 % Eosinophils (%) (Auto) 0.7 % Basophils (%) (Auto) 0.3 % Neutrophils # (Auto) 8.04 1.4-6.5 K/uL Lymphocytes # (Auto) 1.81 1.2-3.4 K/uL Monocytes # (Auto) 1.07 0.11-0.59 K/uL Eosinophils # (Auto) 0.08 0-0.5 K/uL Basophils # (Auto) 0.03 0-0.2 K/uL RDW Standard Deviation 41.4 36.4-46.3 fL RDW Coefficient of Variation 13.0 11.5-14.5 % Immature Granulocyte % (Auto) 0.4 % Immature Granulocyte # (Auto) 0.04 0.00-0.02 K/uL Prothrombin Time 10.0 9.0-12.0 SECONDS Prothromb Time International Ratio 1.0 0.9-1.1 Activated Partial Thromboplast Time 30.3 21.0-31.0 SECONDS Partial Thromboplastin Ratio 1.2 Sodium Level 137 136-145 mmol/L Potassium Level 3.1 3.5-5.1 mmol/L Chloride Level 100 98-107 mmol/L Carbon Dioxide Level 31 21-32 mmol/L Anion Gap 6.0 16.0 16-25 mmol/L Blood Urea Nitrogen 9 7-18 mg/dl Creatinine 0.45 0.60-1.20 mg/dl Est Creatinine Clear Calc Drug Dose 126.3 ml/min Estimated GFR () > 150.0 Estimated GFR (Non- 131.7 BUN/Creatinine Ratio 20.2 10-20 Random Glucose 81 70-99 mg/dl Calcium Level 8.9 8.5-10.1 mg/dl Magnesium Level 2.3 1.8-2.4 mg/dl Bedside Hemoglobin 13.3 12.0-16.0 g/dl Bedside Hematocrit 39 37-47 % Bedside Sodium 138 135-144 mEq/L Bedside Potassium 3.1 3.3-5.0 mEq/L Bedside Chloride 96 101-112 mEq/L Bedside Total CO2 30 24-31 mEq/l Bedside Blood Urea Nitrogen 7 7-18 mg/dl Bedside Creatinine 0.4 0.6-1.3 mg/dl Bedside Glucose (other) 85 70-99 mg/dl Bedside Ionized Calcium (Angella) 1.14 1.12-1.32 mmol/l Bedside Troponin I < 0.030 0-0.045 ng/ml Test 12/29/17 07:38 Range/Units White Blood Count 7.13 4.8-10.8 K/uL Red Blood Count 3.93 4.2-5.4 M/uL Hemoglobin 11.3 12.0-16.0 g/dL Hematocrit 34.0 37-47 % Mean Corpuscular Volume 86.5 80-100 fL Mean Corpuscular Hemoglobin 28.8 25-34 pg Mean Corpuscular Hemoglobin Concent 33.2 32-36 g/dl RDW Standard Deviation 41.8 36.4-46.3 fL RDW Coefficient of Variation 12.9 11.5-14.5 % Platelet Count 412 130-400 K/uL Mean Platelet Volume 9.5 7.4-10.4 fL Sodium Level 135 136-145 mmol/L Potassium Level 3.8 3.5-5.1 mmol/L Chloride Level 101 98-107 mmol/L Carbon Dioxide Level 28 21-32 mmol/L Anion Gap 6.0 3-11 mmol/L Blood Urea Nitrogen 5 7-18 mg/dl Creatinine 0.40 0.60-1.20 mg/dl Est Creatinine Clear Calc Drug Dose 142.1 ml/min Estimated GFR () > 150.0 Estimated GFR (Non- 136.9 BUN/Creatinine Ratio 12.5 10-20 Random Glucose 69 70-99 mg/dl Calcium Level 8.2 8.5-10.1 mg/dl Microbiology Results 12/28/17 Blood Culture, Received Pending 12/28/17 Blood Culture, Received Pending
[2017-12-29] MEDS ORDERED: SODIUM CHLORIDE 0.9% 1000ML 1,000 ML IV ONE (14:30)
[2017-12-29] MEDS ORDERED: LEVOFLOXACIN / D5W 750 MG in PREMIXED IN D5W 150 ML IV SCH (15:00)
[2017-12-29] MEDS: NICOTINE 21 MG/24 HR TDSY TD SCH (15:08)
[2017-12-29] MEDS: ACETAMINOPHEN 325 MG TAB PO PRN (16:17)
[2017-12-29] MEDS: AMPHETAMINE ASP/SULF/DEXTRAMPH 20 MG TAB PO SCH (21:33)
[2017-12-30] VITALS: O2SAT 91
[2017-12-30 00:30] VITALS: BP 93/54; PULSE 88; TEMP 36.9; O2SAT 96
[2017-12-30] MEDS: ACETAMINOPHEN 325 MG TAB PO PRN (02:25)
[2017-12-30 07:04] VITALS: PULSE 69; O2SAT 95
[2017-12-30] MEDS: ALBUT/IPRATROP 3MG/0.5MG NEB 3 ML VIAL INH SCH ×2 (07:04→11:25)
[2017-12-30 07:22] LABS: HEMATOCRIT 34.8 % (37-47); HEMOGLOBIN 11.7 g/dL (12.0-16.0); MEAN CELL VOLUME 85.5 fL (80-100); MEAN CORPUSCULAR HEMOGLOBIN 28.7 pg (25-34); MEAN CORPUSCULAR HGB CONC 33.6 g/dl (32-36); MEAN PLATELET VOLUME 9.1 fL (7.4-10.4); PLATELET COUNT 436 K/uL (130-400); RED CELL DISTRIBUTION WIDTH CV 12.8 % (11.5-14.5); RED CELL DISTRIBUTION WIDTH SD 40.6 fL (36.4-46.3)
[2017-12-30] MEDS: AMPHETAMINE ASP/SULF/DEXTRAMPH ER 20 MG CAP PO SCH (07:50)
[2017-12-30] MEDS: FLUOXETINE HCL 20 MG CAP PO SCH (07:50)
[2017-12-30] MEDS: NICOTINE 21 MG/24 HR TDSY TD SCH (07:50)
[2017-12-30 07:54] VITALS: BP 103/66; PULSE 78; TEMP 36.8; O2SAT 96
[2017-12-30 08:00] LABS: BLOOD UREA NITROGEN 2 mg/dl (7-18); CALCIUM 8.7 mg/dl (8.5-10.1); CARBON DIOXIDE 28 mmol/L (21-32); CREATININE 0.37 mg/dl (0.60-1.20); GLUCOSE 94 mg/dl (70-99); POTASSIUM 4.1 mmol/L (3.5-5.1); SODIUM 137 mmol/L (136-145)
[2017-12-30 11:26] VITALS: PULSE 72; O2SAT 96
--- NOTE | 2017-12-30 13:43 | Progress Note ---
Internal Med Progress Note Date of Service: Dec 30, 2017. Provider Documentation: SUBJECTIVE: Seen and examined at bedside States feeling much better Less, Cough Denies SOB, wheezing No other complaints Family at bedside OBJECTIVE: Vital Signs-as noted below Physical Exam: General Appearance:Thin, no apparent distress Head: normocephalic, Atraumatic Eyes: normal inspection, EOMI, PERRL Neck: supple, Trachea midline Respiratory/Chest: Decreased breath sounds Cardiovascular: S1, S2, No murmur Abdomen/GI:Soft, Non tender, Bowel sounds present Extremities/Musculoskelatal:normal inspection, no edema Neurologic/Psych:AAOX3, grossly no focal neurological deficits Skin: normal color, warm Lab data as noted below. ASSESSMENT & PLAN: Multifocal Pneumonia: CT: No PE, extensive consolidation in right lower and left lower lobes with evidence of possible mucus plugging in subsegmental airways to the involved segments. Emphysema Recently completed Tamiflu course for suspected Influenza Continue Levaquin Day # 3 Blood cultures:No growth to date Sputum Culture:Normal Jovanna Neb PRN Pulmonary toilet with flutter valve BP usually runs low per patient May need PFTs as outpatient Hypokalemia: Resolved monitor ADHD, Bipolar disorder continue fluoxetine and Adderall Tobacco Use Disorder: Nicotine patch Counselled to quit smoking DVT Px: SCDs, ambulation Disposition: Plan to discharge home Today Follow up with your PCP on 01/04/18 at 12:45pm Complete the antibiotic course as prescribed Get Lung function tests as outpatient as advised Quit smoking as advised and No smoking while on Nicotine Patch Seek immediate medical attention if your symptoms reoccur or worsen Vital Signs: Date Time Temp Pulse Resp B/P (MAP) Pulse Ox O2 Delivery O2 Flow Rate FiO2 12/30/17 11:26 72 16 96 Room Air 12/30/17 08:00 Room Air 12/30/17 07:54 36.8 78 20 103/66 (78) 96 Room Air 12/30/17 07:04 69 16 95 Room Air 12/30/17 00:30 36.9 88 20 93/54 (67) 96 Room Air 12/30/17 00:00 91 Room Air 12/29/17 18:54 89 16 91 Room Air 12/29/17 16:25 36.8 95 22 102/66 (78) 97 Room Air 12/29/17 16:15 97 Room Air 12/29/17 14:28 98 16 92 Room Air Lab Results: Results Past 24 Hours Test 12/30/17 06:56 Range/Units White Blood Count 8.50 4.8-10.8 K/uL Red Blood Count 4.07 4.2-5.4 M/uL Hemoglobin 11.7 12.0-16.0 g/dL Hematocrit 34.8 37-47 % Mean Corpuscular Volume 85.5 80-100 fL Mean Corpuscular Hemoglobin 28.7 25-34 pg Mean Corpuscular Hemoglobin Concent 33.6 32-36 g/dl RDW Standard Deviation 40.6 36.4-46.3 fL RDW Coefficient of Variation 12.8 11.5-14.5 % Platelet Count 436 130-400 K/uL Mean Platelet Volume 9.1 7.4-10.4 fL Sodium Level 137 136-145 mmol/L Potassium Level 4.1 3.5-5.1 mmol/L Chloride Level 104 98-107 mmol/L Carbon Dioxide Level 28 21-32 mmol/L Anion Gap 5.0 3-11 mmol/L Blood Urea Nitrogen 2 7-18 mg/dl Creatinine 0.37 0.60-1.20 mg/dl Est Creatinine Clear Calc Drug Dose 153.6 ml/min Estimated GFR () > 150.0 Estimated GFR (Non- 140.4 BUN/Creatinine Ratio 4.8 10-20 Random Glucose 94 70-99 mg/dl Calcium Level 8.7 8.5-10.1 mg/dl Magnesium Level 2.2 1.8-2.4 mg/dl Microbiology Results 12/29/17 Gram Stain - Final, Resulted 12/29/17 Sputum Culture - Preliminary, Resulted MODERATE NORMAL JOVANNA Present, Final ...
[2017-12-30] MEDS ORDERED: LVQ750 PO (13:44)
[2017-12-30] MEDS ORDERED: NICO21DI4 TD (13:44)
[2017-12-30] MEDS ORDERED: LEVOFLOXACIN 750 MG TAB PO ONE (13:45)
--- NOTE | 2017-12-30 13:47 | Discharge Summary ---
Discharge Summary Date of Service Dec 30, 2017. Discharge Summary Admission Date: Dec 28, 2017 at 19:07 Discharge Date: Dec 30, 2017 Discharge Disposition: Home Principal Diagnosis: Pneumonia Procedures: CTA: 1. No evidence of pulmonary embolus. 2. Extensive consolidation in the right lower and left lower lobes compatible with multifocal pneumonia. Evidence of bronchial debris/mucus plugging in the subsegmental airways to the involved segments. 3. Emphysema. Consultations: None Pending Studies/Follow-Up: Follow up with your PCP on 01/04/18 at 12:45pm Complete the antibiotic course as prescribed Get Repeat chest X ray in 4 weeks and follow up with your doctor Get Lung function tests as outpatient as advised Quit smoking as advised and No smoking while on Nicotine Patch Seek immediate medical attention if your symptoms reoccur or worsen Medication Reconciliation New Medications: Levofloxacin (Levofloxacin) 750 Mg Tab 750 MG PO DAILY@11 for 7 Days, #7 TAB Nicotine (Nicoderm Cq) 21 Mg/24 Hr Dis 1 PATCH TD QAM for 30 Days, #30 EA Continued Medications: Amphetamine-Dextroamphetamine 20MG (Adderall 20MG) 1 Tab Tab 20 MG PO HS, TAB Amphetamine-Dextroamphetamine 30MG (Adderall Xr 30MG) 1 Cap Cap 60 MG PO DAILY, CAP Fluoxetine HCl (Fluoxetine HCl) 20 Mg Cap 60 MG PO DAILY Admission Information HPI (per Admitting provider): 32 year old female who presents to the ED with left sided rib pain. Patient reports her illness started about two weeks ago with low back pain. She reports she chronically has low back pain however it acutely worsened two weeks ago. She was seen by her PCP and labs and xrays were obtained that were unremarkable. About a week ago patient developed chills, body aches, nausea, and weakness. Tamiflu was called in for her on 12/20 and she completed the course. She was seen in the ED on 12/22 for similar complaints and had an unremarkable work up. Patient reports that since that time she has developed a cough productive for yellow and green sputum. Denies shortness of breath. She continues to have body aches and runs a low grade fever. She has developed left sided rib pain that has progressed to severe pain. She has had a poor appetite but denies nausea, vomiting, diarrhea, or abdominal pain. No urinary symptoms. In the ED, patient underwent a CTA of the chest that is negative for PE but does show a multifocal pneumonia. She is saturating well on room air. Other vitals are stable. She was given IV Levaquin, IV Dilaudid, IV Morphine, IV Zofran, and K+ supplement. Physical Exam (per Admitting): General Appearance: WD/WN, no apparent distress Head: normocephalic, atraumatic Eyes: normal inspection, EOMI, sclerae normal ENT: hearing grossly normal, + pertinent finding (mucous membranes moist) Neck: supple, no JVD, trachea midline Respiratory/Chest: no respiratory distress, + decreased breath sounds (poor inspiratory effort) Cardiovascular: regular rate, rhythm, no edema, normal peripheral pulses Abdomen/GI: normal bowel sounds, non tender, soft, no organomegaly Extremities/Musculoskelatal: normal inspection, no calf tenderness, normal capillary refill Neurologic/Psych: no motor/sensory deficits, alert, normal mood/affect, oriented x 3 Skin: normal color, warm/dry Hospital Course Multifocal Pneumonia: CT: No PE, extensive consolidation in right lower and left lower lobes with evidence of possible mucus plugging in subsegmental airways to the involved segments. Emphysema Recently completed Tamiflu course for suspected Influenza Continue Levaquin Day # 3 Blood cultures:No growth to date Sputum Culture:Normal Jovanna Neb PRN Pulmonary toilet with flutter valve BP usually runs low per patient May need PFTs as outpatient Hypokalemia: Resolved monitor ADHD, Bipolar disorder continue fluoxetine and Adderall Tobacco Use Disorder: Nicotine patch Counselled to quit smoking DVT Px: SCDs, ambulation Disposition: Plan to discharge home Today Follow up with your PCP on 01/04/18 at 12:45pm Complete the antibiotic course as prescribed Get Lung function tests as outpatient as advised Quit smoking as advised and No smoking while on Nicotine Patch Seek immediate medical attention if your symptoms reoccur or worsen Total time spent on discharge = This includes examination of the patient, discharge planning, medication reconciliation, and communication with other providers. Discharge Instructions Discharge Instructions Date of Service Dec 30, 2017. Admission Reason for Admission: Pneumonia Discharge Discharge Diagnosis / Problem: Pneumonia Discharge Goals Goal(s): Decrease discomfort, Improve function Activity Recommendations Activity Limitations: resume your previous activity Exercise/Sports Limitations: as tolerated . Instructions / Follow-Up Instructions / Follow-Up Follow up with your PCP on 01/04/18 at 12:45pm Complete the antibiotic course as prescribed Get Repeat chest X ray in 4 weeks and follow up with your doctor Get Lung function tests as outpatient as advised Quit smoking as advised and No smoking while on Nicotine Patch Seek immediate medical attention if your symptoms reoccur or worsen Current Hospital Diet Patient's current hospital diet: Regular Diet Discharge Diet Recommended Diet: Regular Diet Pending Studies Studies pending at discharge: no Medical Emergencies . Who to Call and When: Medical Emergencies: If at any time you feel your situation is an emergency, please call 911 immediately. . Non-Emergent Contact Non-Emergency issues call your: Primary Care Provider Call Non-Emergent contact if: you have a fever, your pain is not controlled, your pain is worsening, your pain is unusual for you, your pain is concerning you, you have any medication questions Seek immediate medical attention if your symptoms reoccur or worsen . . "Provider Documentation" section prepared by Miguelangel Jay. . VTE Core Measure Inpt VTE Proph given/why not?: SCD's <Electronically signed by Miguelangel Jay MD> Signed: 12/30/17 [id number] Signed: The status of this report is Signed * If report status is Draft, the document has not been finalized by the responsible provider.
[2017-12-30 13:50] VITALS: BP 103/66; PULSE 72; TEMP 36.8; O2SAT 96
[2017-12-31] MEDS ORDERED: LEVOFLOXACIN 750 MG TAB PO SCH (11:00)
== END 2017-12-30 14:17 | disposition home or self-care (01) ==
LOC: C.EDB 16:36 → C.MS4W 19:07 → ENRESERV 19:55 → EDBEDREQ 20:24
PROVIDERS: ADMIT Family Medicine; ATTEND Internal Medicine
DX: J18.9 Pneumonia, unspecified organism (principal); F90.9 Attention-deficit hyperactivity disorder, unspecified type; F31.9 Bipolar disorder, unspecified; F17.200 Nicotine dependence, unspecified, uncomplicated

== ENCOUNTER 2020-10-13 23:08 | Inpatient (IN) ==
[2020-10-13] MEDS ORDERED: OXYTOCIN 30 UNITS/500 ML BAG IV PRN (23:33)
[2020-10-14 00:05] LABS: Hematocrit (blood only) 35.7 % (37-47); Hemoglobin 10.6 g/dL (12.0-16.0); Mean Corpuscular Hemoglobin 22.9 pg (25-34); Mean Corpuscular Hgb Conc 29.7 g/dL (32-36); Mean Corpuscular Volume 77.3 fL (80-100); Platelet Count 165 K/uL (130-400); RDW Coefficient of Variation 26.5 % (11.5-14.5); Red Blood Count 4.62 M/uL (4.2-5.4); White Blood Count 15.12 K/uL (4.8-10.8)
[2020-10-14] MEDS ORDERED: SODIUM CHLORIDE 0.9% INJ 10 ML VIAL ONE (00:07)
[2020-10-14] MEDS ORDERED: BUPIVACAINE 0.25% 30 ML VIAL ONE (00:07)
[2020-10-14] MEDS ORDERED: ePHEDrine sulfate 50 MG/ML AMP ONE (00:07)
[2020-10-14] MEDS ORDERED: fentaNYL 2MCG/ML ROPIVACAINE 1.25MG/ML 100 ML BAG EPI ONE (00:08)
[2020-10-14] MEDS ORDERED: fentaNYL citrate 100 MCG/2 ML VIAL ONE (00:08)
[2020-10-14] MEDS: LACTATED RINGER'S 1,000 ML IV PRN ×3 (00:10→04:28)
--- NOTE | 2020-10-14 00:41 | Anesthesiology Consultation ---
Date of Service October 14, 2020 Assessment & Plan (1) Encounter for pre-operative examination: Chart Review Chart Review: Patient NOT seen in Pre Admission Testing and Acceptable Risk for Labor Epidural Consults Requested none ASA ASA2 Proposed Anesthesia Anesthesia Type: Labor Epidural Risk / Benefits Reviewed With: PT / POA / Parent / Guardian, Accepts Plan and Informed Consent Obtained History Height/Weight Height: 5 ft 0.5 in Weight: 74.843 kg Allergies Allergy/AdvReac Type Severity Reaction Status Date / Time gabapentin Allergy Mild Depressed Verified 07/18/20 02:30 Medications Home Medications Medication Instructions Recorded Confirmed Last Taken dextroamphetamine-amphetamine 20 mg PO TID 06/23/20 10/13/20 10/13/20 18:00 lamotrigine 250 mg PO DAILY 06/23/20 10/13/20 10/13/20 08:00 carbidopa-levodopa 1 tab PO QPM 07/18/20 10/13/20 10/12/20 21:00 clonazepam 0.5 mg PO BID 07/18/20 10/13/20 10/12/20 21:00 promethazine 25 mg PO Q6 PRN 07/18/20 10/13/20 Unknown Active Medications Generic Name Dose Route Start Last Admin Trade Name Freq PRN Reason Stop Dose Admin Lactated Ringer's 1,000 mls @ 125 mls/hr 10/13/20 23:33 10/14/20 00:59 Lr IV 10/15/20 23:32 125 mls/hr .Q8H PRN Administration L&D Protocol Protocol NPO Date Last Intake of Fluids: 10/14/20 Time Last Intake of Fluids: 00:35 Date Last Intake of Solids: 10/14/20 Time Last Intake of Solids: 18:00 Past Medical History Medical History ADHD Bipolar 1 disorder Exercise / Class Metabolic Activity II 4-5 Yardwork/Stairs/Walk up hill Past Surgical History Surgical History S/P mastectomy, bilateral (01/01/14) Past Anesthesia History No Hx of Anesthesia Complications History of PONV No Hx of PONV Social History Smoking Status: Former smoker Review of Systems Patient denies history of abnormal bleeding or bleeding disorder. Patient denies active use of anticoagulants other than low dose aspirin. Patient denies numbness, tingling or weakness in lower extremities. Negative for chest pain or shortness of breath. Physical Exam Vital Signs Last Vital Signs Pulse 91 H 10/13/20 23:48 BP 122/76 10/13/20 23:48 Constitutional not obese (gravid uterus) ENMT Mouth: no TMJ abnormality and oral opening not small Thyromental Distance: > or= 3.5 Finger Breadths Mallampati Class: II Neck normal visual inspection; neck extension not limited Respiratory normal respiratory effort Auscultation: lungs clear to auscultation bilaterally Cardiovascular Rate/Rhythm: regular rate and regular rhythm Heart Sounds: no murmur Neurologic moves all extremities Motor/Sensory: no sensory deficit Psychiatric Orientation: alert and oriented x 3 Testing Laboratory Results 10/13/20 23:47
[2020-10-14] MEDS ORDERED: ePHEDrine sulfate 50 MG/ML AMP IV PRN (01:06)
[2020-10-14] MEDS ORDERED: ONDANSETRON INJ 2 MG/ML 2 ML VIAL IV PRN (01:06)
[2020-10-14] MEDS ORDERED: diphenhydrAMINE 50 MG/ML VIAL IV PRN (01:06)
[2020-10-14] MEDS ORDERED: NALOXONE HCL 0.4 MG/1 ML VIAL/CARP IV PRN (01:06)
[2020-10-14] MEDS ORDERED: fentaNYL 2MCG/ML ROPIVACAINE 1.25MG/ML 100 ML BAG EPI PRN (01:06)
[2020-10-14] MEDS ORDERED: NALOXONE HCL 1 MG in SODIUM CHLORIDE 0.9% 1000ML 1,000 ML IV PRN (01:06)
[2020-10-14] MEDS ORDERED: OXYTOCIN 30 UNITS/500 ML BAG IV PRN ×2 (03:04→06:08)
[2020-10-14] MEDS ORDERED: bisacodyL 10 MG SUPP PR PRN (06:08)
[2020-10-14] MEDS ORDERED: oxyCODONE/ACETAMINOPHEN 5mg/325mg TAB PO PRN (06:08)
[2020-10-14] MEDS ORDERED: ACETAMINOPHEN W/CODEINE #3 1 TAB PO PRN (06:08)
[2020-10-14] MEDS ORDERED: BENZOCAINE 20% AER SPR 82.5 GM CAN EXT PRN (06:08)
[2020-10-14] MEDS ORDERED: SUPERCREAM 0.870% 15 GM JAR EXT PRN (06:08)
[2020-10-14] MEDS ORDERED: HYDROCORTISONE ACETATE 25 MG SUPP PR PRN (06:08)
[2020-10-14] MEDS ORDERED: DIPHTHERIA/TETANUS/PERTUSSIS 0.5 ML SYR/VIAL IM ONE (06:08)
[2020-10-14] MEDS: IBUPROFEN 600 MG TAB PO PRN ×4 (07:42→22:08)
--- NOTE | 2020-10-14 07:57 | Anesthesiology Progress Note ---
Date of Service October 14, 2020 Anesthesia Post Procedure Vital Signs Vital Signs: Temp Pulse Resp BP Pulse Ox 10/14/20 07:52 96 H 118/67 10/14/20 07:37 75 115/56 L 10/14/20 07:22 78 122/58 L 10/14/20 07:07 80 119/64 10/14/20 06:52 82 115/64 10/14/20 06:37 85 116/57 L 10/14/20 06:22 90 118/61 10/14/20 06:10 37.3 C 89 18 98 10/14/20 06:07 88 119/62 10/14/20 06:05 88 97 10/14/20 06:00 87 98 10/14/20 05:55 93 H 96 10/14/20 05:52 83 120/59 L 10/14/20 05:50 97 H 96 10/14/20 05:45 137 H 98 10/14/20 05:40 88 99 10/14/20 05:35 96 H 99 10/14/20 05:30 83 97 10/14/20 05:25 81 98 10/14/20 05:22 101 H 117/70 10/14/20 05:20 90 97 10/14/20 05:15 99 H 97 10/14/20 05:10 105 H 97 10/14/20 05:07 84 102/57 L 10/14/20 05:05 89 96 10/14/20 05:00 92 H 97 10/14/20 04:55 95 H 96 10/14/20 04:52 89 106/59 L 10/14/20 04:50 86 97 10/14/20 04:45 88 97 10/14/20 04:40 94 H 96 10/14/20 04:37 85 103/56 L 10/14/20 04:35 83 96 10/14/20 04:30 84 96 10/14/20 04:25 96 H 97 10/14/20 04:22 84 103/57 L 10/14/20 04:20 85 96 10/14/20 04:15 82 97 10/14/20 04:10 75 98 10/14/20 04:07 77 105/58 L 10/14/20 04:05 81 97 10/14/20 04:00 37.1 C 91 H 16 96 10/14/20 03:55 79 97 10/14/20 03:53 77 99/56 L 10/14/20 03:50 83 96 10/14/20 03:45 78 97 10/14/20 03:40 79 97 10/14/20 03:37 69 113/62 10/14/20 03:35 102 H 97 10/14/20 03:30 77 16 97 10/14/20 03:25 77 96 10/14/20 03:22 71 113/59 L 10/14/20 03:20 84 96 10/14/20 03:15 72 95 10/14/20 03:10 80 95 10/14/20 03:06 75 114/59 L 10/14/20 03:05 76 96 10/14/20 03:00 84 95 10/14/20 02:55 76 95 10/14/20 02:54 74 112/58 L 10/14/20 02:50 83 96 10/14/20 02:45 83 96 10/14/20 02:40 86 96 10/14/20 02:38 73 109/62 10/14/20 02:35 75 96 10/14/20 02:30 75 96 10/14/20 02:25 81 97 10/14/20 02:23 73 125/58 L 10/14/20 02:20 75 98 10/14/20 02:15 87 97 10/14/20 02:10 79 97 10/14/20 02:07 83 114/64 10/14/20 02:05 78 97 10/14/20 02:00 36.7 C 77 98 10/14/20 01:55 84 98 10/14/20 01:52 80 127/72 10/14/20 01:50 84 98 10/14/20 01:45 76 98 10/14/20 01:40 92 H 98 10/14/20 01:37 94 H 113/61 10/14/20 01:35 93 H 98 10/14/20 01:30 91 H 98 10/14/20 01:25 92 H 97 10/14/20 01:20 91 H 97 10/14/20 01:17 93 H 108/58 L 10/14/20 01:15 97 H 97 10/14/20 01:12 88 108/57 L 10/14/20 01:10 91 H 97 10/14/20 01:08 98 H 120/67 10/14/20 01:05 92 H 98 10/14/20 01:03 81 111/57 L 10/14/20 01:00 85 98 10/14/20 00:57 81 132/79 10/14/20 00:55 78 98 10/14/20 00:50 86 99 10/14/20 00:45 90 98 10/14/20 00:40 84 98 10/13/20 23:48 36.7 C 91 H 18 122/76 10/13/20 23:18 91 H 122/76 Transfer of Care Handoff Completed per policy Notes Mental Status: alert / awake / arousable and participated in evaluation Patient Amnestic to Procedure: Yes Nausea / Vomiting: adequately controlled Pain: adequately controlled Airway Patency, RR, SpO2: stable & adequate BP & HR: stable & adequate Hydration State: stable & adequate Anesthetic Complications: no major complications apparent and Pt Satisfied with anesthetic care
--- NOTE | 2020-10-14 08:23 | Delivery Summary ---
DATE OF OPERATION: 10/14/2020 5, para 3, blood type is A positive, group B strep negative, was admitted at 39 weeks 2 days who was in active labor, was about 4+ cm on admission. Soon after admission, she was fluid loaded and given epidural. She obtained good pain relief. She later was started on IV Pitocin to get her contractions regular and harder. She then went to full dilatation, delivered a live infant via direct occiput anterior position with just a few pushes. was suctioned through the mouth and the nose after delivery of the head. There was a nuchal cord which was reduced around the head and shoulders were delivered without difficulty. Cord was allowed to pulse for 1 minute, then it was clamped and cut. Cord was cut by the 's father. Cord blood was taken. With IV Pitocin running, the placenta was removed intact. Inspection of the perineum revealed a superficial first-degree laceration. This was repaired anatomically. The vaginal mucosa was approximated out and to be on the hymenal ring with a running Vicryl and deep suture of Vicryl was used to approximate the bulbocavernosus muscle, separate deep suture was used to approximate the perineal body. Running subcuticular suture used to approximate the perineal skin edges. Following this, vag exam including rectovaginal examination revealed no hematoma formation or sponges in the rectum. Estimated blood loss was 100 mL. There was noted to be meconium staining of the placental membranes. I attest to the content of the Intraoperative Record and any orders documented therein. Any exception s are noted below.
[2020-10-14] MEDS: PRENATAL VITAMIN 1 TAB PO SCH (12:10)
[2020-10-14] MEDS: DOCUSATE SODIUM 100 MG CAP PO SCH ×2 (12:11→20:03)
[2020-10-14] MEDS: ACETAMINOPHEN 325 MG TAB PO PRN ×2 (13:35→20:04)
[2020-10-15] MEDS: IBUPROFEN 600 MG TAB PO PRN ×3 (03:15→13:27)
[2020-10-15] MEDS: ACETAMINOPHEN 325 MG TAB PO PRN (04:41)
[2020-10-15 06:43] LABS: Hematocrit (blood only) 32.1 % (37-47); Hemoglobin 9.4 g/dL (12.0-16.0); Mean Corpuscular Hgb Conc 29.3 g/dL (32-36); Mean Corpuscular Volume 78.5 fL (80-100); Platelet Count 197 K/uL (130-400); RDW Coefficient of Variation 26.7 % (11.5-14.5); RDW Standard Deviation 75.1 fL (36.4-46.3); Red Blood Count 4.09 M/uL (4.2-5.4); White Blood Count 9.98 K/uL (4.8-10.8)
--- NOTE | 2020-10-15 08:04 | Obstetrical Progress Note ---
Date of Service October 15, 2020 Assessment & Plan Admission and Anticipated Discharge Date Admission Date: October 13, 2020 Subjective Patient is seen and examined. She feels well, no complaints. Desires d/c Ambulating without dizziness Voiding without difficulty Tolerating regular diet with out N&V Bleeding is minimal No fever/ chills/ CP/ SOB/ N&V/ Leg pain Bottle feeding without problems Vital Signs Temp Pulse Pulse Resp BP BP Pulse Ox 10/15/20 04:35 36.8 C 78 16 106/73 95 10/15/20 00:30 36.5 C 96 H 16 105/69 95 10/14/20 19:35 36.8 C 89 18 137/79 98 10/14/20 15:40 36.7 C 73 18 120/71 97 10/14/20 12:00 36.9 C 76 18 125/69 98 10/14/20 10:15 37.0 C 77 18 114/67 97 10/14/20 09:37 83 114/58 L 10/14/20 09:22 84 112/58 L 10/14/20 09:07 82 110/60 10/14/20 08:52 77 112/61 10/14/20 08:37 102 H 113/63 10/14/20 08:22 75 115/60 10/14/20 08:18 37.1 C 20 10/14/20 08:07 83 119/79 Lab Results 10/13/20 10/15/20 Range/Units 23:47 05:57 WBC 15.12 H 9.98 (4.8-10.8) K/uL RBC 4.62 4.09 L (4.2-5.4) M/uL Hgb 10.6 L 9.4 L (12.0-16.0) g/dL Hct 35.7 L 32.1 L (37-47) % MCV 77.3 L 78.5 L (80-100) fL MCH 22.9 L 23.0 L (25-34) pg MCHC 29.7 L 29.3 L (32-36) g/dL RDW Std Deviation 73.0 H 75.1 H (36.4-46.3) fL RDW Coeff of Chikis 26.5 H 26.7 H (11.5-14.5) % Plt Count 165 197 (130-400) K/uL MPV 10.0 (7.4-10.4) fL PE: General: Alert, orientedx3, NAD Abd: soft, NT, fundus firm, below Umbilicus Perineum intact, Lochia rubra minimal Ext; NT, no edema AP: 35 yo s/p , ppd# 1 VSS Afebrile doing well Continue routine care All questions were answered Discussed when to call D/C home , f/u in office Results & Data ([facility]) Vital Signs (Past 12 Hours) Vital Signs Temp Pulse Resp BP Pulse Ox 10/15/20 04:35 36.8 C 78 16 106/73 95 10/15/20 00:30 36.5 C 96 H 16 105/69 95
[2020-10-15] MEDS: DOCUSATE SODIUM 100 MG CAP PO SCH (08:45)
[2020-10-15] MEDS: PRENATAL VITAMIN 1 TAB PO SCH (08:45)
[2020-10-15] MEDS ORDERED: bisacodyL 5 MG TABEC PO SCH (20:00)
== END 2020-10-15 14:55 | disposition home or self-care (01) | DRG 807 ==
LOC: OPB 23:08 → 4S1 23:08 → 4S2 10-14 10:00

== ENCOUNTER 2023-09-28 10:36 | Observation (INO) ==
--- NOTE | 2023-09-03 12:54 | Anesthesiology Consultation ---
Date of Service September 03, 2023 Assessment & Plan (1) Encounter for pre-operative examination: - Infectious disease screening: Per assessment on 09/03/23: No known infectious disease contacts or current infectious disease symptoms. No noted Covid positive test result in past 90 days. - D&C (06/09/22): LMA#3 at [facility] Chart Review Chart Review: Acceptable Risk for Surgery and Patient NOT seen in Pre Admission Testing History Surgery Operation Date: 09/07/23 11:55 Proposed Procedures p Dilation of the Cervix, Evacuation and Curettage (Removal of Products of Conception) - Ca Boston MD Height/Weight Height: 5 ft 0.25 in Weight: 49.895 kg Allergies Allergy/AdvReac Type Severity Reaction Status Date / Time gabapentin AdvReac Intermediate Depressed Verified 09/03/23 12:04 Medications Home Medications Medication Instructions Recorded Confirmed Last Taken dextroamphetamine-amphetamine 20 20 mg PO TID 06/23/20 09/03/23 06/08/22 17:30 mg tablet (Adderall) lamotrigine 100 mg tablet 300 mg PO QAM 06/23/20 09/03/23 06/09/22 05:15 clonazepam 0.5 mg tablet 0.5 mg PO BID 07/18/20 09/03/23 06/08/22 17:30 buspirone 15 mg tablet 15 mg PO TID 06/04/22 09/03/23 06/09/22 05:15 pramipexole 0.125 mg tablet 0.125 mg PO HS 06/04/22 09/03/23 06/08/22 21:30 vortioxetine 10 mg tablet 10 mg PO QAM 02/05/23 09/03/23 Unknown (Trintellix) levonorgestrel 0.15 mg-ethinyl 1 tab PO DAILY #84 tabs 07/18/23 09/03/23 Unknown estradiol 0.03 mg tablet albuterol sulfate 90 mcg/actuation 1 inh inhalation QID PRN Shortness 09/03/23 09/03/23 Unknown aerosol inhaler Of Breath Past Medical History Medical History ADHD Bipolar 1 disorder Chronic obstructive pulmonary disease 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 Follows with heme/onc (oldest daughter also has) History of COVID-19 2020- mild symptoms > resolved Iron deficiency anemia Past Family History Family History Aunt FHx: ovarian cancer Uterine cancer, Onset Age: 48 Maternal Mother , age 35 Breast cancer, Onset Age: 34 Grandmother (Maternal) Breast cancer, Onset Age: 35 Then again late 40s Uncle Prostate cancer maternal Colorectal cancer, Onset Age: 45 Maternal Stomach cancer, Onset Age: 44 Maternal Other No family history of adverse response to anesthesia Denies family history of Ovarian cancer Past Surgical History Surgical History History of breast augmentation B/L S/P breast biopsy multiple, precancerous lesions found per [facility] records S/P mastectomy, bilateral negative BRCA testing, precancerous lesions on breat biopsy + strong family history of breast cancer S/P wisdom tooth extraction Social History Smoking Status: Former smoker Do You Dip or Chew Tobacco: No Smoking End Date: ~2006 Hx Alcohol Use: No Hx Substance Use: No substance use type: does not use Testing Laboratory Results 07/09/23 WBC 6.54 H/H 11.3/34.2 PLATELETS 285
[~2023-09-28 10:36] MED LIST changes: -AMPH20TA2 PO; -AMPH30CA3 PO; -CLON0.5T3 PO; +DOXYCYCLINE HYCLATE 100 MG CAP PO SCH; -FLUO20CA36 PO; +General Order Problem(s) SCH; +LACTATED RINGER'S 1,000 ML IV SCH; +LR 15ML/HR IV SCH; +METHYLERGONOVINE MALEATE 0.2 MG TAB PO SCH; +METHYLERGONOVINE MALEATE 0.2 MG/ML AMP IM SCH; -MTR800 PO; -OSEL75CA16 PO; +miSOPROStoL 200 MCG TAB PO SCH; +miSOPROStoL 200 MCG TAB PV SCH
--- NOTE | 2023-09-28 11:45 | History & Physical Bridge Note ---
Date of Service September 28, 2023 History & Physical Bridge Note I have examined the patient, reviewed the History & Physical and in the interval since the performance of the History & Physical I have noted the following changes of clinical significance: no changes noted
[2023-09-28 12:02] LABS: Hematocrit (blood only) 34.9 % (37.0-47.0); Hemoglobin 11.5 g/dl (12.0-16.0); Mean Corpuscular Volume 88.1 fL (80.0-100.0); Mean Platelet Volume 8.8 fL (9.4-12.4); Platelet Count 285 K/uL (130-400); RDW Coefficient of Variation 12.6 % (11.5-14.5); Red Blood Count 3.96 M/uL (4.20-5.40); White Blood Count 4.04 K/ul (4.8-10.8)
[2023-09-28] MEDS ORDERED: ATROPINE SULFATE 0.1 MG/ML 10ML SYR IV PRN (12:12)
[2023-09-28] MEDS ORDERED: fentaNYL citrate PF 100 MCG/2 ML VIAL IV PRN (12:12)
[2023-09-28] MEDS ORDERED: ONDANSETRON INJ 2 MG/ML 2 ML VIAL IV PRN ×2 (12:12→16:59)
[2023-09-28] MEDS ORDERED: ePHEDrine sulfate 50 MG/ML AMP IV PRN (12:12)
[2023-09-28] MEDS ORDERED: PROPOFOL IV EMULSION 10 MG/ML 20 ML VIAL IV ONE (12:57)
[2023-09-28] MEDS ORDERED: LIDOCAINE 2% 2 ML VIAL/AMP(20MG/ML) INFIL ONE (12:57)
[2023-09-28] MEDS ORDERED: MIDAZOLAM HCL 1 MG/ML 2ML VIAL ONE (12:57)
[2023-09-28] MEDS ORDERED: fentaNYL citrate PF 100 MCG/2 ML VIAL ONE (12:57)
[2023-09-28] MEDS ORDERED: ONDANSETRON INJ 2 MG/ML 2 ML VIAL ONE (14:32)
[2023-09-28] MEDS ORDERED: DEXAMETHASONE SOD INJ 4 MG/ML VIAL ONE (14:32)
[2023-09-28] MEDS ORDERED: ACETAMINOPHEN 1000 MG/100 ML IV IV ONE (15:06)
--- NOTE | 2023-09-28 15:15 | Post Operative Brief Note ---
PG Immediate Post Op with CF Date of Surgery September 28, 2023 Pre & Post Diagnosis Operation Date: 09/28/23 12:05 Pre-Op Diagnosis: Retained Products of Conception after Post-Op Diagnosis: Retained Products of Conception after I identified the patient and participated in the time-out.: Yes Procedure Operation Date: 09/28/23 12:05 Actual Procedures p Dilation of the Cervix, Evacuation and Curettage under US(Removal of Products of Conception) - Ca Boston MD s Hysteroscopy - Ca Boston MD Surgeon Ca Boston MD Batch Plant Supervisor None Estimated Blood Loss 50 Findings Consistent with Post-Op Diagnosis Retained products removed by suction curette and sharp curettage. Due to area of complexity that seemed to persist, there was question of clot vs remaining POC. Hysteroscopy was used to examine cavity which did not demonstrate obvious retained products, just clot. Fundus seen intact and left tubal ostia wnl, R tubal ostia obscured by a clot. Remainder of uterine cavity appeared intact w/o bleeding. Myosure fluid deficit was 790 and rapid, suspected due to significant dilation of the cervix. US confirmed no fluid within the pelvis, upper or lower abdomen and bleeding appeared appropriate given procedure, pt's vital signs remained wnl throughout so no indication of perforation was seen. Fluids 1500cc crystalloid, Myosure fluid deficit 790cc Specimens Specimen Description: A: Retained Products of Conception Anesthesia Type General Complications none Disposition Accompanied Patient To Recovery: Yes Disposition: Recovery Room
--- NOTE | 2023-09-28 15:58 | Anesthesiology Progress Note ---
Date of Service September 28, 2023 Anesthesia Post Procedure Vital Signs Vital Signs: Temp Pulse Pulse Resp BP Pulse Ox O2 Del Method 09/28/23 15:55 59 L 16 98/67 L 98 Room Air 09/28/23 15:45 36.4 C L 59 L 15 97/63 L 98 Room Air 09/28/23 15:35 60 12 99/64 L 99 Room Air 09/28/23 15:25 67 17 103/72 100 Oxymask 09/28/23 15:18 36.4 C L 80 13 118/73 100 Oxymask 09/28/23 10:55 36.9 C 70 16 100/62 99 Room Air O2 Flow Rate 09/28/23 15:55 09/28/23 15:45 09/28/23 15:35 09/28/23 15:25 4 09/28/23 15:18 6 09/28/23 10:55 Transfer of Care Handoff Completed per policy Notes Mental Status: alert / awake / arousable and participated in evaluation Patient Amnestic to Procedure: Yes Nausea / Vomiting: adequately controlled Pain: adequately controlled Airway Patency, RR, SpO2: stable & adequate BP & HR: stable & adequate Hydration State: stable & adequate Anesthetic Complications: no major complications apparent and Pt Satisfied with anesthetic care
[2023-09-28] MEDS ORDERED: ALBUTEROL HFA 8 GM INHALER INH PRN (16:59)
[2023-09-28] MEDS ORDERED: LACTATED RINGER'S 1,000 ML IV SCH (16:59)
--- NOTE | 2023-09-28 17:00 | Operative Report ---
PG Post Operative Report Pre & Post Diagnosis Operation Date: 09/28/23 12:05 Pre-Op Diagnosis: Retained Products of Conception after Post-Op Diagnosis: Retained Products of Conception after I identified the patient and participated in the time-out.: Yes Procedure Operation Date: 09/28/23 12:05 Actual Procedures p Dilation of the Cervix, Evacuation and Curettage (Removal of Products of Conception)(Not Applicable) - Ca Boston MD s Hysteroscopy under ultrasound(Not Applicable) - Ca Boston MD Surgeon Ca Boston MD Salvage Repairer None Estimated Blood Loss 50 Findings Consistent with Post-Op Diagnosis Retained products removed by suction curette and sharp curettage. Due to area of complexity that seemed to persist, there was question of clot vs remaining POC. Hysteroscopy was used to examine cavity which did not demonstrate obvious retained products, just clot. Fundus seen intact and left tubal ostia wnl, R tubal ostia obscured by a clot. Remainder of uterine cavity appeared intact w/o bleeding or evidence of product. US confirmed no fluid within the pelvis, upper or lower abdomen and bleeding appeared appropriate given procedure, pt's vital signs remained wnl throughout so no indication of perforation was seen. Fluids 1500cc crystalloid, Myosure fluid deficit 790cc Specimens Products of conception Drains None Anesthesia Type General Complications none Disposition Accompanied Patient To Recovery: Yes Disposition: Recovery Room Indications 38-year-old G5, P3 Had a TAB in May and US in june that showed passage of GS however persistent vascularity and thickened lining was seen suggestive of retained POCs. She did try cytotec however f/u US demonstrated persistent retained POCs so opted for surgical evacuation Description of Procedure The patient was brought to the operating room suite where informed consent and the patient identity were confirmed. A time out was then performed. Hcg was not indicated given the procedure. General anesthesia was obtained without dif ficulty. She was prepped and draped in a dorsal lithotomy position with all pressure points padded and checked. Bimanual exam revealed a 8 week size uterus. A side open speculum was inserted in the vagina and a tenaculum was placed on the anterior lip of the cervix. The cervix was serially dilated to #25 Bulgarian under US. A 8 mm suction cannula was inserted into the uterine cavity and suction was applied under US. Multiple passes were performed to obtain tissue. Sharp curettage was then gently performed to curet the uterine cavity and returned additional tissue, so additional suction was performed to retrieve further products. Given amount of additional tissue, she was further dilated under US to accommodate a 10mm curette. A final pass with suction curette was performed without return of tissue however there is an aspect of complexity on the ultrasound that was difficult to determine if it was additional retained products or clot and so hysteroscope was used to visualize the endometrial cavity. My partner was called for assistance with the evaluation at this time. Upon entry into the cavity, fundus was visualized intact and no additional products were visualized. Fluid deficit was noted to have rapidly climbed to 700 during this time without evidence of perforation at any point during the hysteroscopic entry there was significant fluid exiting the cervix. Due to rapid increase, hysteroscopy was discontinued after confirmation of no visible perforation. Ultrasound did not demonstrate fluid within the pelvis or the upper abdomen. Uterine serosa did not appear disrupted. Some fluid was noted to be within the cavity still. Patient vital signs remained within normal limits. Given reassuring findings did not indicate obvious perforation to be related to rapid fluid increase, laparoscopy was deferred. Procedure was discontinued. single-tooth tenaculum was then removed from the cervix, good hemostasis was noted. Uterine size was noted to have decreased in size. The patient was taken to the recovery room in stable condition. She tolerated the procedure well. All counts were correct x 2 at the conclusion of the procedure. I attest to the content of the Intraoperative Record and any orders documented therein. Any exceptions are noted below. SPRAY BLENDER Minor Procedure Codes D&E 33677 D&E (Incomplete AB) Hysteroscopy(ic) D/C 83575 Hysteroscopy Only
[2023-09-28] MEDS ORDERED: oxyCODONE HCL IR 5 MG TAB (IMMEDIATE RELEASE) PO PRN (17:30)
--- NOTE | 2023-09-28 17:30 | Communication Note ---
Date of Service: September 28, 2023 Presented to bedside to discuss procedure with the patient and her fianc. Extent of procedure and Intra-Op imaging were reviewed with patient and her f ianc to their apparent satisfaction. Discussed plan to monitor overnight and get labs now out of precaution and they are amenable to plan. Abdomen is soft appropriately tender, nondistended. Minimal bleeding. Patient has chronic back pain is slightly worse but it feels like her usual type, not a different kind of pain. We will continue to monitor
[2023-09-28 17:51] LABS: Hematocrit (blood only) 34.6 % (37.0-47.0); Hemoglobin 11.6 g/dl (12.0-16.0); Mean Corpuscular Hemoglobin 28.9 pg (25.0-34.0); Mean Corpuscular Hgb Conc 33.5 g/dL (32.0-36.0); Mean Corpuscular Volume 86.3 fL (80.0-100.0); Mean Platelet Volume 8.9 fL (9.4-12.4); Platelet Count 291 K/uL (130-400); RDW Coefficient of Variation 12.6 % (11.5-14.5); Red Blood Count 4.01 M/uL (4.20-5.40); White Blood Count 6.91 K/ul (4.8-10.8)
[2023-09-28 18:05] LABS: BUN Creatinine Ratio 19.6 (10-20); Calcium 8.2 mg/dl (8.6-10.3); Creatinine Clr Calc Pharmacy 111.8 ml/min; Est GFR (African American) 140.4 ml/min; Est GFR (Non-African American) 121.1 ml/min; Potassium 4.1 mmol/L (3.5-5.1)
[2023-09-28] MEDS: busPIRone 15 MG TAB PO SCH (22:13)
[2023-09-28] MEDS: ACETAMINOPHEN 325 MG TAB PO PRN (22:14)
[2023-09-29 07:03] LABS: Hematocrit (blood only) 33.4 % (37.0-47.0); Hemoglobin 10.9 g/dl (12.0-16.0); Mean Corpuscular Hemoglobin 28.6 pg (25.0-34.0); Mean Corpuscular Hgb Conc 32.6 g/dL (32.0-36.0); Mean Corpuscular Volume 87.7 fL (80.0-100.0); Mean Platelet Volume 9.4 fL (9.4-12.4); Platelet Count 304 K/uL (130-400); RDW Coefficient of Variation 12.3 % (11.5-14.5); RDW Standard Deviation 39.5 fL (36.4-46.3); Red Blood Count 3.81 M/uL (4.20-5.40); White Blood Count 5.99 K/ul (4.8-10.8)
[2023-09-29 07:32] LABS: BUN Creatinine Ratio 13.2 (10-20); Calcium 8.4 mg/dl (8.6-10.3); Creatinine Clr Calc Pharmacy 107.5 ml/min; Est GFR (African American) 138.6 ml/min; Est GFR (Non-African American) 119.6 ml/min; Potassium 3.7 mmol/L (3.5-5.1)
[2023-09-29] MEDS: ACETAMINOPHEN 325 MG TAB PO PRN (07:32)
--- NOTE | 2023-09-29 08:14 | Gynecologic Progress Note ---
Date of Service September 29, 2023 Assessment & Plan (1) Postop check: Plan: -doing well, meeting all milestones. H/H is stable given has been getting fluids all evening, electrolytes wnl. Exam is benign and reassuring so I think ok for dc. Will have breakfast and then can go home. Will send msg to get f/u scheduled. precautions reviewed Admission and Anticipated Discharge Date Admission Date: September 28, 2023 Subjective SHANNON overnight. Not really having any abdominal pain, back pain is per usual. Minimal bleeding. Voiding w/o difficulty. Denies fevers, chills, CP, SOB Physical Exam Respiratory: normal respiratory effort; no respiratory distress and no labored breathing Gastrointestinal (Abdomen): abd soft, NT, ND Results & Data Vital Signs (Past 12 Hours) Vital Signs Temp Pulse Resp BP Pulse Ox O2 Del Method 09/29/23 03:11 97.9 F 71 18 110/62 97 Room Air 09/28/23 22:58 98.2 F 66 16 95/59 L 96 Room Air PG Care Time/CCT Total # of Minutes Spent Total Time Spent with Patient: Total time spent is greater than 50% in coordination of care (as documented) at patient's floor/unit and/or counseling patient: Coding Level of Care Code None Diagnoses Postop check Z09
[2023-09-29] MEDS: busPIRone 15 MG TAB PO SCH (08:43)
[2023-09-29] MEDS ORDERED: lamoTRIgine 100 MG TAB PO SCH (09:00)
== END 2023-09-29 08:59 | disposition home or self-care (01) ==
LOC: ASU 10:36 → 4E1 10:36